=== PATIENT | male | born 1990 | race African-American/Black ===

== ENCOUNTER 2025-09-05 09:46 | Outpatient (CLI) | payer BC, SELFPAY ==
--- NOTE | ~2025-09-05 | XR_ITS ---
Examination: XR foot RT 2V Clinical History: pt states pain to medial side of 1st digit x 3 mths ago Comparison: None Technique: 2 views right foot Findings/impression: 1. No fracture or acute abnormality on 2 view series. 2. Minimal bunion deformity. Reviewed, dictated and finalized at location R. R HELPER
--- NOTE | ~2025-09-05 | XR_ITS ---
EXAMINATION: XR abdomen/kub 1V, 09/05/2025 10:17 [employer] HISTORY: pt states pain to right side of abdomen x 3 mths ago COMPARISON: No comparisons available. Technique: 3 view. Findings: Moderate fecal content, no dilated bowel loops No free air. No abnormal calcifications No acute osseous abnormality. Impression: 1. No acute abnormality. Reviewed, dictated and finalized at location P. [employer] WORKER Impression: 1. No acute abnormality.
== END 2025-09-05 09:47 | disposition home or self-care (01) ==
PROVIDERS: PCP Family Medicine; Visit Provider Family Medicine
DX: R10.9 Unspecified abdominal pain (principal); M79.671 Pain in right foot
CPT/HCPCS: 73620; 74018